=== PATIENT | male | born 1950 | race Caucasian/White ===

== ENCOUNTER 2023-02-23 22:40 | Inpatient (IN) | payer MEDICARE, OTHER, SELFPAY ==
--- NOTE | ~2023-02-23 | MR_ITS ---
MRI of the brain Clinical History: Altered mental status Technique: Axial and sagittal T1-weighted images were acquired. These were followed by axial T2-weigh penny, diffusion weighted, gradient, and FLAIR images. Following intravenous administration of 20 cc Mu ltiHance gadolinium, T1-weighted fat-sat imaging was performed in the axial, coronal, and sagittal pl anes. Findings: There is no acute infarct, intracranial hemorrhage, or mass lesion. Focal old right frontal lobe infarct noted. Moderate chronic microvascular ischemic changes are present in the periventricul ar white matter bilaterally. Ventricles and subarachnoid spaces are dilated. Orbits are unremarkable. Paranasal sinuses and mastoi d air cells are clear. Major intracranial flow voids are intact. Sagittal midline structures are grossly intact. No abnormal postcontrast enhancement identified. IMPRESSION: No acute abnormality seen. Old right frontal lobe infarct. Moderate chronic microvascular ischemic changes and moderate generalized atrophy. Reviewed, dictated and finalized at [facility]. IMPRESSION: No acute abnormality seen. Old right frontal lobe infarct. Moderate chronic microvascular ischemic changes and moderate generalized atroph y.
--- NOTE | ~2023-02-23 | XR_ITS ---
Portable chest x-ray Comparison: None Clinical History: Altered mental status Findings: Probable mild central pulmonary venous congestive change versus pulmonary hypertension. No consolidation or pleural effusion. No pneumothorax. Cardiomediastinal silhouette is otherwise unrem arkable. Bones and soft tissues are unremarkable. Impression: Central pulmonary venous congestive change versus possibly pulmonary hypertension. Reviewed, dictated and finalized at [facility]. Impression: Central pulmonary venous congestive change versus possibly pulmonary hypertensi on.
--- NOTE | ~2023-02-23 | CT_ITS ---
CT head without contrast Indication: Altered mental status Technique: Serial scans were obtained through the brain without the administration of contrast. Dose reduction technique was used on this scan by utilizing automated exposure control and iterative recon struction technique. The dose-length product (DLP) was 681.00 mGy-cm. Findings: There is no evidence of intracranial hemorrhage, mass lesion, or acute infarct. Old right f rontal lobe infarct noted. The ventricles and subarachnoid spaces are dilated, consistent with mild a trophy. Low attenuation regions are seen within the periventricular white matter bilaterally, likely representing changes from chronic microvascular ischemic disease. There is no evidence of edema, ma ss effect or midline shift. The visualized paranasal sinuses and mastoid air cells are clear. Impression: No intracranial hemorrhage, mass, or acute infarct. Chronic right frontal lobe infarct. Atrophy and chronic white matter changes, as above. Reviewed, dictated and finalized at [facility]. Impression: No intracranial hemorrhage, mass, or acute infarct. Chronic right frontal lobe infarct. Atrophy and chronic white matter changes, as above.
--- NOTE | ~2023-02-23 | XR_ITS ---
Portable chest x-ray Comparison: 02/23/2023 Clinical History: Chest pain, shortness of breath Findings: There is diffuse interstitial edema and mild central venous congestive change, worsened fr om prior exam. No definite pleural effusion or pneumothorax. Cardiomediastinal silhouette is stable. Bones and soft tissues are unremarkable. Impression: Significant worsening of diffuse interstitial pulmonary edema with central congestive change. Reviewed, dictated and finalized at [facility]. Impression: Significant worsening of diffuse interstitial pulmonary edema with central amanda estive change.
[2023-02-23 22:39] VITALS: PULSE 95; RESP 27; O2SAT 96
[2023-02-23 22:40] VITALS: TEMP 36.9
--- NOTE | 2023-02-23 22:44 | ED.GENADULT ---
HPI - General Adult General Chief complaint: Altered Mental Status Stated complaint: COMBATIVE History of Present Illness HPI narrative: this is a 72-year-old male with history of MS and daily prescribed opiate use presenting for altered mental status. The patient accidentally took double his opiate use today. His has been monitored throughout the day but then gave him Narcan. He then became very agitated and EMS was called. He was given Haldol had to be restrained. This time the patient cannot provide me any useful information but told EMS that his entire body hurts. Related Data Allergies Allergy/AdvReac Type Severity Reaction Status Date / Time Unable to Assess Allergy Unverified 02/23/23 22:49 [facility] Past Medical History Medical History (Updated 02/24/23 @ 04:58 by Karan Beyer MD) Multiple sclerosis Exam Narrative: APPEARANCE: Patient is being restrained by security and EMS, Head: atraumatic, pupils are bg. EYES: EOMI, NOSE: Atraumatic NECK: Trachea midline RESPIRATORY: No increased rate of breathing, clear to auscultation CARDIOVASCULAR: RRR, peripheral edema ABDOMINAL: Non-distended MUSCULOSKELETAl: No obvious deformities NEURO: Alert. Moving 4/4 extremities SKIN:: Warm, dry. Normal color PSYCHIATRIC: Normal affect Course Vital Signs Vital signs: Vital Signs Pulse Rate 95 02/23/23 22:39 Respiratory Rate 27 H 02/23/23 22:39 Pulse Oximetry 96 02/23/23 22:39 Temperature 98.4 F 02/23/23 22:40 Pulse Rate 58 L 02/24/23 04:06 Respiratory Rate 12 02/24/23 04:06 Blood Pressure 125/63 02/24/23 04:06 Pulse Oximetry 100 02/24/23 04:06 Medical Decision Making [facility] Narrative Medical decision making narrative: -Presentation: 72-year-old male with multiple sclerosis and daily opiate use presenting with agitation after being Narcan by his . On arrival patient was being restrained by multiple EMS. He was given multiple doses of Haldol and Ativan and eventually required ketamine to facilitate his workup. -DDX includes but is not limited to: Narcan induced opiate withdrawal, polysubstance use disorder, Seizure disorder -Co-morbidities complicating care: multiple sclerosis, daily narcotic use -Social determinants of health: lives with his -Hx from independent Sources: EMS -Discussion of Management/Consultants:Taras Reynolds - Hospitalist -Independent interpretation of studies: CBC within normal limits. Metabolic panel showed chronic kidney disease vs SUNNY. no baseline Cr in our system. troponins within normal limits. BNP wnl. Lipase is 1400. no tenderness on palpation of the abdomen. CT head : Advanced volume loss and microvascular changes are present. No intracranial hemorrhage. Region of encephalomalacia identified within the right parietal lobe probably to an old infarct. Chest x-ray showed no acute cardiopulmonary process. -Interventions: 5 mg Haldol x2, 2 mg Ativan x2, 4 mg IM ketamine, 3 L normal saline -Shared decision making / Disposition: Upon re-evaluation the patient is arousable but has garbled speech. The sedation he received could be contributing to his lethargy but it should not be affecting his speech to this degree. patient will be admitted to the hospital for further evaluation of his altered mental status. Consult placed to neurology. Vital Signs Vital Signs: Vital Signs Pulse Rate 95 02/23/23 22:39 Respiratory Rate 27 H 02/23/23 22:39 Pulse Oximetry 96 02/23/23 22:39 Temperature 98.4 F 02/23/23 22:40 Pulse Rate 58 L 02/24/23 04:06 Respiratory Rate 12 02/24/23 04:06 Blood Pressure 125/63 02/24/23 04:06 Pulse Oximetry 100 02/24/23 04:06 Lab Data 02/23/23 23:04 02/23/23 23:03 Labs: Lab Results 02/23/23 02/23/23 02/24/23 Range/Units 23:03 23:04 03:24 WBC 9.8 (4.5-10.0) K/mm3 RBC 4.08 L (4.6-6.20) M/mm3 Hgb 12.8
[2023-02-23] MEDS: HALOPERIDOL LACTATE 5 MG/ML VIAL IV PUSH (22:56)
[2023-02-23] MEDS: LORazepam INJ (*CRX) 2 MG/ML VIAL IV PUSH ×2 (23:03→23:18)
[2023-02-23 23:14] LABS: Basophils Percent Auto 0.2 % (0.2-1.2); Eosinophils Absolute Auto 0.2 K/mm3 (0-0.3); Eosinophils Percent Auto 2.2 % (0-4.4); Hematocrit 37.5 % (42.0-52.0); Hemoglobin 12.8 g/dL (14.0-18.0); Immature Granulocyte Absolute 0.04 K/mm3 (0.00-0.031); Immature Granulocyte Percent A 0.4 % (0-0.5); Lymphocytes Absolute Auto 4.25 K/mm3 (0.9-3.2); Lymphocytes Percent Auto 43.3 % (18.3-44.2); Mean Corpuscular HGB Conc 34.1 g/dl (32-36); Mean Corpuscular Hemoglobin 31.4 pg (26-34); Mean Corpuscular Volume 91.9 fl (80-100); Mean Platelet Volume 11.2 fl (7.4-10.4); Monocytes Absolute Auto 0.5 K/mm3 (0.1-0.6); Monocytes Percent Auto 4.9 % (2.6-8.5); Neutrophils Absolute Auto 4.8 K/mm3 (1.3-6.7); Platelet Count Result 150 k/mm3 (150-375); Red Blood Count 4.08 M/mm3 (4.6-6.20); Red Cell Distribution Width 14.1 % (11.5-14.5); White Blood Count 9.8 K/mm3 (4.5-10.0)
[2023-02-23 23:19] VITALS: BP 161/107
[2023-02-23 23:25] VITALS: PULSE 92; RESP 16; O2SAT 99
[2023-02-23 23:28] LABS: Partial Thromboplastin Time 31.5 SECONDS (22.3-36.8); Prothrombin Time 13.9 Seconds (11.1-14.7)
[2023-02-23 23:34] LABS: Alanine Aminotransferase 31 U/L (6-50); Albumin Level 4.5 g/dL (3.5-5.1); Alkaline Phosphatase 66 U/L (38-126); Anion Gap 14 mmol/L (8-16); Aspartate Amino Transferase 39 U/L (17-59); Bilirubin,Total 0.9 mg/dL (0.2-1.3); Blood Urea Nitrogen 40 mg/dL (9-20); Calcium 9.6 mg/dL (8.4-10.2); Carbon Dioxide 19 mmol/L (22-30); Chloride 105 mmol/L (98-107); Creatine Kinase 231 U/L (55-170); Estimated CRCL calculation 47 ml/min; Estimated Glomerular Filt Rate 40; Glucose 167 mg/dL (65-110); Lipase 1460 U/L (23-300); Magnesium 1.4 mg/dL (1.6-2.3); Potassium 4.9 mmol/L (3.4-5.0); Sodium 138 mmol/L (137-145)
[2023-02-23] MEDS: KETAMINE HCL (*CRX) 500 MG/10 ML VIAL 400 MG IM (23:36)
[2023-02-23 23:37] LABS: Lactic Acid Reflex 4.2 mmol/L (0.7-2.0)
[2023-02-23 23:45] LABS: Troponin I < 0.012 ng/mL (0.000-0.034)
[2023-02-23 23:48] VITALS: BP 156/69; PULSE 87; RESP 20; O2SAT 98
[2023-02-23 23:58] LABS: NT Pro B Type Natriuretic Pept 166 pg/mL (19.9-100)
[2023-02-24] VITALS (14 sets, daily range): BP systolic 100–150; BP diastolic 52–90; PULSE 55–80; RESP 12–18; TEMP 35.8–36.3; O2SAT 95–100; BMI 44.4
[2023-02-24] MEDS: SODIUM CHLORIDE 0.9% IV 2,000 ML 999 ML IV CONT (00:41)
[2023-02-24 02:09] LABS: Reflex Lactic Acid Yes or No Add Lactic
--- NOTE | 2023-02-24 02:35 | ECG_ITS ---
Measurements Intervals [place] Rate: 68 P: 41 [place]: 213 QRS: -9 QRSD: 185 T: 144 QT: 443 QTc: 472 Interpretive Statements SINUS RHYTHM WITH FIRST DEGREE AV BLOCK LEFT BUNDLE BRANCH BLOCK ABNORMAL ECG NO PREVIOUS ECG AVAILABLE FOR COMPARISON Electronically Signed On 02-24-2023 7:38:43 CDT by Jaiden Funes D.O.
--- NOTE | 2023-02-24 03:41 | PC.NURSE ---
This RN assumed care of patient.
[2023-02-24 04:03] LABS: Lactic Acid 0.8 mmol/L (0.7-2.0)
--- NOTE | 2023-02-24 04:05 | PC.NURSE ---
Pt is asleep. Bilateral soft ankle and wrist restraints removed at this time.
[2023-02-24 04:16] LABS: Troponin I 0.013 ng/mL (0.000-0.034)
[2023-02-24] MEDS: SODIUM CHLORIDE 0.9% IV 1,000 ML 999 ML IV CONT (04:59)
[2023-02-24 05:20] LABS: Ammonia < 9 umol/L (9-30)
[2023-02-24 05:21] LABS: Lactic Acid Reflex 0.6 mmol/L (0.7-2.0)
[2023-02-24 05:26] LABS: Amphetamine Screen Urine Negative (Negative); Barbiturate Screen Urine Negative (Negative); Benzodiazepines Screen Urine Negative (Negative); Cannabinoid Screen Urine Negative (Negative); Cocaine Screen Urine Negative (Negative); Methadone Screen Urine Negative (Negative); Opiate Screen Urine Positive (Negative); Phencyclidine Screen Urine Negative (Negative)
[2023-02-24 05:47] LABS: Influenza A QL RT-PCR Negative (Negative); Influenza B QL RT-PCR Negative (Negative); RSV RNA, RT-PCR Negative (Negative); SARS-CoV-2 RNA PCR Negative (Negative)
[2023-02-24 05:52] LABS: Alveolar/Arterial O2 Gradient 23.8 mmHg; Base Excess ABG -7.7 mEq/l (+/-2.0); Fractional Inspired Oxygen 21 %; HCO3 ABG 19.2 mEq/l (22.0-26.0); Oxygen Content ABG 15.3 %vol (16.0-22.0); Oxygen Saturation ABG 92.1 % (95.0-100.0); Oxyhemoglobin 91.8 % THb (90.0-100.0); PCO2 ABG 44.8 mmHg (35.0-45.0); PO2 ABG 72.3 mmHg (80.0-100.0); PO2 FiO2 Ratio Arterial Blood 3.44 %; Total Hemoglobin 11.8 g/dL (12.0-18.0)
[2023-02-24 05:54] LABS: Device ROOM AIR; Modified Allen's Test Pass; Site Drawn LEFT RADIAL; pH ABG 7.251 (7.350-7.450)
[2023-02-24 06:00] LABS: Appearance Urine Clear (Clear); Bacteria Urine None Seen /hpf; Bilirubin Urine Negative (Negative); Blood Urine Negative (Negative); Color Urine Yellow (Yellow); Glucose Urine UA Negative (Negative); Hyaline Casts Urine Present /lpf; Ketones Urine Trace mg/dL (Negative); Leukocyte Esterase Ur Negative LEU/UL (Negative); Nitrate Urine Negative (Negative); Protein Urine Trace mg/dL (Negative); RBC Urine 0-2 /hpf (0-2); Specific Grav Ur 1.016 (1.001-1.035); Squamous Epithelial Cell Urine None seen /hpf (Few); Urobilinogen Urine 0.2 mg/dL (<2.0); WBC Urine 0-5 /hpf
[2023-02-24 06:03] LABS: Add Urine Microscopic? YES
[2023-02-24] MEDS: LACTATED RINGERS 1,000 ML 125 ML IV CONT ×2 (06:05→16:34)
--- NOTE | 2023-02-24 06:31 | PC.NURSE ---
This RN attempted to call report. Rn taking pt was busy in a patient room and would call me back.
[2023-02-24 07:39] LABS: Glucose Point of Care 124 mg/dl (65-105)
[2023-02-24] MEDS: PANTOPRAZOLE SODIUM IV 40 MG VIAL IV PUSH (08:12)
[2023-02-24 09:28] LABS: Basophils Percent Auto 0.3 % (0.2-1.2); Eosinophils Absolute Auto 0.1 K/mm3 (0-0.3); Eosinophils Percent Auto 1.4 % (0-4.4); Hematocrit 37.1 % (42.0-52.0); Hemoglobin 12.5 g/dL (14.0-18.0); Immature Granulocyte Absolute 0.02 K/mm3 (0.00-0.031); Immature Granulocyte Percent A 0.2 % (0-0.5); Immature Platelet Fraction Pct 6.3 % (0.9-11.2); Lymphocytes Absolute Auto 3.73 K/mm3 (0.9-3.2); Lymphocytes Percent Auto 37.4 % (18.3-44.2); Mean Corpuscular HGB Conc 33.7 g/dl (32-36); Mean Corpuscular Volume 94.9 fl (80-100); Mean Platelet Volume 12.1 fl (7.4-10.4); Monocytes Absolute Auto 0.5 K/mm3 (0.1-0.6); Monocytes Percent Auto 5.2 % (2.6-8.5); Neutrophils Absolute Auto 5.5 K/mm3 (1.3-6.7); Neutrophils Percent Auto 55.5 % (45.5-73.1); Platelet Count Result 133 k/mm3 (150-375); Red Blood Count 3.91 M/mm3 (4.6-6.20); Red Cell Distribution Width 14.3 % (11.5-14.5)
[2023-02-24 09:34] LABS: Magnesium 1.4 mg/dL (1.6-2.3)
[2023-02-24 09:41] LABS: Alanine Aminotransferase 26 U/L (6-50); Albumin Level 3.9 g/dL (3.5-5.1); Alkaline Phosphatase 53 U/L (38-126); Anion Gap 6 mmol/L (8-16); Aspartate Amino Transferase 36 U/L (17-59); Bilirubin,Total 0.9 mg/dL (0.2-1.3); Blood Urea Nitrogen 33 mg/dL (9-20); Calcium 8.1 mg/dL (8.4-10.2); Carbon Dioxide 20 mmol/L (22-30); Chloride 111 mmol/L (98-107); Estimated CRCL calculation 71 ml/min; Estimated Glomerular Filt Rate > 60; Glucose 126 mg/dL (65-110); Lipase 243 U/L (23-300); Potassium 5.9 mmol/L (3.4-5.0); Sodium 137 mmol/L (137-145)
--- NOTE | 2023-02-24 09:45 | WPDNEURCNPN ---
Assessment and Plan Assessment and plan (1) Altered mental status: Code(s): R41.82 - Altered mental status, unspecified Status: Acute (2) Agitation: Code(s): R45.1 - Restlessness and agitation Status: Acute (3) Narcotic withdrawal: Code(s): F11.93 - Opioid use, unspecified with withdrawal Status: Acute (4) Accidental overdose: Code(s): T50.901A - Poisoning by unspecified drugs, medicaments and biological substances, accidental (unintentional), initial encounter Status: Acute Assessment and Plan: Mr. Kent is a 72 year ol male with a reported history of MS that presented with altered mental status after accidental overdose of opoids. Course has also been complicated by narcotic withdrawal from Narcan as well as sedating drugs he received for agitation in the emergency room. Patient is not at baseline mental status, but he is able to follow directions with prompting. MRI brain has already been done which was negative for acute process. - EEG is not needed at this point, if mental status does not improve over the next day, can re-consider at that time. Consult date: 02/24/23 Reason for consult: Altered mental status HPI: Ryan Kent is a 72 year old male with a history of multiple sclerosis presenting with AMS. Patient reportedly took double his opiod dose yesterday resulting in somnolence. gave him Narcan which resulted in him being agitated. He received several doses of Haldol, Ativan, and Ketamine. In the ED his CT head showed advanced volume loss and R parietal lobe encephalomalacia. Patient became more alert in the ED, but continued to have garbled speech, which was why Neurology was consulted. reports that this is not the first time this has happened. In the past he was taken to [facility] after he accidentally took 2 night's worth of his medications. feels that he is still not at his baseline. Review of Systems Review of Systems: ROS unobtainable: Yes unobtainable due to mental status PMFSH Past Medical History Medical History Multiple sclerosis Family History Family History Mother Heart disease Diabetes mellitus Unknown No problems noted. Father Heart disease Diabetes mellitus Sibling Leukemia Social History Social History Smoking status: Former smoker Alcohol intake: current Drinks per week: 1 Substance use: current Substance use type: painkillers Last use: 02/23/23 Lack of Transportation: No Lack of Food: Never True Current Housing: I Have Housing Concerned About Future Housing: No Difficulty Paying Gas/Electric Bills: No Difficulty Paying for Meds: No Currently Unemployed: No Education: Don't Know Difficulty w/ Childcare or Family Care: Decline to Answer Spiritual care concerns: No Meds Home Medications and Allergies Home Medications Medication Instructions Recorded Confirmed Type Adult Low Dose Aspirin 81 mg BYMOUTH DAILY 02/24/23 02/24/23 History PreserVision AREDS 2 tablet DAILY 02/24/23 02/24/23 History atorvastatin 80 mg tablet 80 mg PO HS 02/24/23 02/24/23 History baclofen 20 mg BYMOUTH BID 02/24/23 02/24/23 History cholecalciferol (vitamin D3) 50 mcg BYMOUTH DAILY 02/24/23 02/24/23 History docusate sodium 100 mg BYMOUTH DAILY 02/24/23 02/24/23 History ferrous sulfate 324 mg BYMOUTH DAILY 02/24/23 02/24/23 History hydroxyzine HCl 10 mg BYMOUTH HS 02/24/23 02/24/23 History isosorbide mononitrate 30 mg BYMOUTH DAILY 02/24/23 02/24/23 History levothyroxine 75 mcg BYMOUTH DAILY 02/24/23 02/24/23 History losartan 100 mg BYMOUTH DAILY 02/24/23 02/24/23 History meclizine 25 mg BYMOUTH TID PRN Nausea 02/24/23 02/24/23 History metoprolol tartrate 50 mg BYMOUTH BID 02/24/23 02/24/23 History morphine 60 mg Q12H 02/24/23 02/24/23
--- NOTE | 2023-02-24 09:54 | ADMGEN ---
This patient, Ryan Kent, was admitted to [facility] Surg Room 306-01. Patient/family oriented to hospital policies and general routines including ID bracelet, bed and alarms, visiting hours, pain management, procedures, bathroom and other care routines, personal items, smoking policy, room service/diet, and visiting hours. Information on how to activate the Rapid Response Team has been discussed. Patient/Family are encouraged to report perceived risks to care and to ask questions if they do not understand what they are told or what they should do. Night nurse got report from er nurse.
[2023-02-24 11:46] LABS: Glucose Point of Care 134 mg/dl (65-105)
--- NOTE | 2023-02-24 14:36 | ECG_ITS ---
Measurements Intervals [place] Rate: 72 P: -3 [place]: 176 QRS: -35 QRSD: 185 T: 131 QT: 442 QTc: 484 Interpretive Statements SINUS RHYTHM ATRIAL PREMATURE COMPLEX LEFT AXIS DEVIATION LEFT BUNDLE BRANCH BLOCK BASELINE ARTIFACT- II ABNORMAL ECG COMPARED TO ECG 02/24/2023 02:35:49 NO SIGNIFICANT CHANGES Electronically Signed On 02-24-2023 15:55:15 CDT by Jaiden Funes D.O.
--- NOTE | 2023-02-24 14:42 | PM.IMHP ---
H&P: HPI History of Present Illness Date/Time: 02/24/23 14:42 Chief Complaint: altered mental status Narrative: This is a 72-year-old male with a past medical history of multiple sclerosis, hypothyroidism, hypertension, anemia, chronic narcotic use, diabetes, obstructive sleep apnea and macular degeneration that presented to the ED on 02/23/2023 due to altered mental status. Most of the history is taken from patient's who is at bedside. Patient's states that she typically handles his medications but over the past week patient was wanting to be more independent in handle his own medications. When they woke yesterday morning patient's asked him if he had taken his medication and at that time he could not remember. Patient had in fact taken his morning dose of medication from a the day prior and then took yesterday's medication a couple hours later. Per patient's he had 2 doses of all of his morning meds within approximately 2-3 hours of each other. It is to be presumed that patient did not take his morning medications the day before this. Patient's states that he frequently gets confused needs redirecting. She understands that she will need to take over his medications once again. Patient's stated that he takes 60 mg of morphine once in the morning and once at night. Patient ingested 120 mg of morphine yesterday morning. About 30 minutes after he had taken his 2nd round of medications he became very loud, aggressive, and restless. Patient's then decided to Narcan him at this time. Patient made statements such as he was going to and that he needed immediate medical attention. Patient's then called EMS. Patient did have an increased respiratory rate with blood pressure, pulse ox and heart rate within normal limits. Patient was very combative in the ED and needing restraints. Patient had been given multiple doses of Haldol, Ativan and eventually requiring ketamine to facilitate his workup. There was concern for Narcan induced opiate withdrawal, polysubstance use disorder and seizure disorder. Patient's denies alcohol abuse and drug use. Patient takes narcotics due to multiple sclerosis. CBC was within normal limits. Metabolic panel revealing mildly elevated creatinine which is since returned to baseline. BNP and troponin within normal limits patient did have an elevated lipase at 1400. CT head revealing no intracranial hemorrhage, mass or acute infarct, chronic right frontal lobe infarct and atrophy and chronic white matter changes present. Chest x-ray with central pulmonary venous congested changes versus possibly pulmonary hypertension. Blood culture drawn. Patient admitted for further workup and observation. Review of Systems Review of Systems: ROS unobtainable: Yes unobtainable due to medical condition [facility] Past Medical History Medical History (Updated 02/24/23 @ 15:21 by Imelda Rivera PA-C) Anemia Diabetes Hyperlipidemia Hypertension Hypothyroidism Macular degeneration disease Multiple sclerosis Obstructive sleep apnea Surgical History Surgical History (Updated 02/24/23 @ 15:21 by Imelda Rivera PA-C) H/O heart artery stent H/O hernia repair Hx laparoscopic cholecystectomy Hx of tonsillectomy Family History Family History Mother Heart disease Diabetes mellitus Unknown No problems noted. Father Heart disease Diabetes mellitus Sibling Leukemia Social History Social History Smoking status: Former smoker Alcohol intake: current Drinks per week: 1 Substance use: current Substance use type: painkillers Last use: 02/23/23 Lack of Transportation: No Lack of Food: Never True Current Housing: I Have Housing Concerned About Future Housing: No Difficulty Paying Gas/Electric Bills: No Difficulty Paying for Meds: No
[2023-02-24] MEDS: MAGNESIUM SULFATE 3GM/D5W100ML 3 GM/100 ML BAG IVPB (15:24)
[2023-02-24 15:35] LABS: Vitamin D 25 Hydroxy 86.2 ng/mL
[2023-02-24 16:21] LABS: Glucose Point of Care 132 mg/dl (65-105)
[2023-02-24 18:58] LABS: Anion Gap 8 mmol/L (8-16); Blood Urea Nitrogen 24 mg/dL (9-20); Calcium 8.4 mg/dL (8.4-10.2); Carbon Dioxide 20 mmol/L (22-30); Chloride 109 mmol/L (98-107); Estimated CRCL calculation 81 ml/min; Estimated Glomerular Filt Rate > 60; Glucose 148 mg/dL (65-110); Sodium 137 mmol/L (137-145)
[2023-02-24 21:10] LABS: Glucose Point of Care 145 mg/dl (65-105)
[2023-02-24] MEDS: METOPROLOL TARTRATE 50 MG TAB PO (21:34)
[2023-02-25] VITALS (11 sets, daily range): BP systolic 136–169; BP diastolic 48–68; PULSE 51–80; RESP 18–26; TEMP 35.7–36.3; O2SAT 92–97
[2023-02-25 05:13] LABS: Alveolar/Arterial O2 Gradient 51.6 mmHg; Base Excess ABG -4.5 mEq/l (+/-2.0); Device ROOM AIR; Fractional Inspired Oxygen 21 %; HCO3 ABG 19.8 mEq/l (22.0-26.0); Modified Allen's Test Pass; Oxygen Content ABG 15.6 %vol (16.0-22.0); Oxygen Saturation ABG 89.7 % (95.0-100.0); Oxyhemoglobin 88.8 % THb (90.0-100.0); PCO2 ABG 34.1 mmHg (35.0-45.0); PO2 ABG 57.3 mmHg (80.0-100.0); PO2 FiO2 Ratio Arterial Blood 2.73 %; Site Drawn RIGHT RADIAL; Total Hemoglobin 12.5 g/dL (12.0-18.0); pH ABG 7.382 (7.350-7.450)
[2023-02-25] MEDS: LEVOTHYROXINE SODIUM 75 MCG TABLET PO (05:49)
[2023-02-25] MEDS: LACTATED RINGERS 1,000 ML 125 ML IV CONT (05:51)
[2023-02-25 06:10] LABS: Basophils Percent Auto 0.2 % (0.2-1.2); Eosinophils Absolute Auto 0.1 K/mm3 (0-0.3); Eosinophils Percent Auto 0.5 % (0-4.4); Hematocrit 34.6 % (42.0-52.0); Hemoglobin 11.8 g/dL (14.0-18.0); Immature Granulocyte Absolute 0.06 K/mm3 (0.00-0.031); Immature Granulocyte Percent A 0.6 % (0-0.5); Lymphocytes Absolute Auto 4.13 K/mm3 (0.9-3.2); Lymphocytes Percent Auto 39.4 % (18.3-44.2); Mean Corpuscular HGB Conc 34.1 g/dl (32-36); Mean Corpuscular Hemoglobin 31.3 pg (26-34); Mean Corpuscular Volume 91.8 fl (80-100); Mean Platelet Volume 10.9 fl (7.4-10.4); Monocytes Absolute Auto 0.6 K/mm3 (0.1-0.6); Monocytes Percent Auto 5.3 % (2.6-8.5); Neutrophils Absolute Auto 5.7 K/mm3 (1.3-6.7); Platelet Count Result 156 k/mm3 (150-375); Red Blood Count 3.77 M/mm3 (4.6-6.20); Red Cell Distribution Width 14.3 % (11.5-14.5); White Blood Count 10.5 K/mm3 (4.5-10.0)
[2023-02-25 06:27] LABS: Alanine Aminotransferase 26 U/L (6-50); Albumin Level 3.9 g/dL (3.5-5.1); Alkaline Phosphatase 59 U/L (38-126); Anion Gap 9 mmol/L (8-16); Aspartate Amino Transferase 40 U/L (17-59); Bilirubin,Total 0.8 mg/dL (0.2-1.3); Blood Urea Nitrogen 16 mg/dL (9-20); Calcium 8.5 mg/dL (8.4-10.2); Carbon Dioxide 23 mmol/L (22-30); Chloride 107 mmol/L (98-107); Estimated CRCL calculation 91 ml/min; Estimated Glomerular Filt Rate > 60; Glucose 148 mg/dL (65-110); Magnesium 1.5 mg/dL (1.6-2.3); Potassium 4.8 mmol/L (3.4-5.0); Sodium 139 mmol/L (137-145)
[2023-02-25 07:44] LABS: Glucose Point of Care 137 mg/dl (65-105)
[2023-02-25] MEDS: PANTOPRAZOLE SODIUM IV 40 MG VIAL IV PUSH (08:11)
[2023-02-25] MEDS: METOPROLOL TARTRATE 50 MG TAB PO (08:11)
--- NOTE | 2023-02-25 10:08 | ECG_ITS ---
Measurements Intervals [place] Rate: 44 P: -11 [place]: 184 QRS: -24 QRSD: 182 T: 129 QT: 490 QTc: 421 Interpretive Statements SINUS BRADYCARDIA LEFT BUNDLE BRANCH BLOCK BASELINE WANDER- I, II, V4 ABNORMAL ECG COMPARED TO ECG 02/24/2023 15:51:42 SINUS BRADYCARDIA NOW PRESENT Electronically Signed On 02-25-2023 11:27:18 CDT by Jaiden Funes D.O.
[2023-02-25 10:17] LABS: Glucose Point of Care 139 mg/dl (65-105)
[2023-02-25 10:55] LABS: Troponin I 0.016 ng/mL (0.000-0.034)
[2023-02-25 11:49] LABS: Glucose Point of Care 168 mg/dl (65-105)
--- NOTE | 2023-02-25 12:15 | P.PNIM_ITS ---
Progress Note: A&P Assessment and Plan (1) Altered mental status: Code(s): R41.82 - Altered mental status, unspecified Status: Acute Assessment and Plan: Patient presented with altered mental status after ingesting 2 doses of his morning medications including morphine. Patient was very very agitated and by the time he arrived to the ED he received Haldol, Ativan and ketamine due to being combative and aggressive. Patient very lethargic when being evaluated. * Tox screen revealed positive for opiates. denies drug use and alcohol abuse. * Head CT negative for acute intracranial hemorrhage, mass or acute infarct * Brain MRI no acute abnormality seen, old right frontal lobe infarct * CBC within normal limits * Patient was found to be in metabolic acidosis. Will plan for repeat blood gas in the morning. * Checking vitamin levels due to patient's saying that he takes a lot of vitamins in the morning * Ammonia less than 9, LFTs normal * Upon admission creatinine 1.7 but has returned To normal. * Lipase elevated to 1400 on admission but repeat down to 243. * Neurology was consulted but do not believe the patient requires EEG at this time. * Continue to monitor mental status. (2) Accidental overdose: Code(s): T50.901A - Poisoning by unspecified drugs, medicaments and biological substances, accidental (unintentional), initial encounter Status: Acute Assessment and Plan: Patient had taken 120 mg of morphine. * Patient's tox screen positive for opiates. * His gave him Narcan him at home. (3) Pulmonary edema: Code(s): J81.1 - Chronic pulmonary edema Status: Acute Assessment and Plan: 02/25/23 during evaluation of the patient he stated that he was having chest pain and difficulty breathing. * Troponin within normal limits and EKG with no significant changes other than sinus bradycardia. * Chest x-ray showing worsening interstitial pulmonary edema. * IV fluids discontinued * Start patient on 40 mg IV Lasix b.i.d. (4) Hyperkalemia: Code(s): E87.5 - Hyperkalemia Status: Acute Assessment and Plan: potassium 5.9 on 02/24/2023. Patient likely hyperkalemic due to metabolic acidosis. * patient received IV fluids * Will give 1 time dose of albuterol * 02/25 fluids discontinued resolved (5) Multiple sclerosis: Code(s): G35 - Multiple sclerosis Status: Chronic Assessment and Plan: Continue home medications (6) Hypertension: Code(s): I10 - Essential (primary) hypertension Status: Chronic Assessment and Plan: Hold home medications for now. (7) Hyperlipidemia: Code(s): E78.5 - Hyperlipidemia, unspecified Status: Chronic Assessment and Plan: Hold medication (8) Hypothyroidism: Code(s): E03.9 - Hypothyroidism, unspecified Status: Chronic Assessment and Plan: continue levothyroxine. Subjective Date/time seen: 02/25/23 12:15 Interval history: Patient appearing much better today. Patient is able to answer my questions and responds appropriately. Patient states that he was having some chest pain and difficulty breathing. Patient's respirations did appear labored. Patient denies nausea, vomiting or radiation of pain down his arms and neck. Review of Systems Review of Systems: All systems reviewed & are unremarkable except as noted in HPI and below Exam
--- NOTE | 2023-02-25 12:15 | PM.IMPN ---
Progress Note: A&P Assessment and Plan (1) Altered mental status: Code(s): R41.82 - Altered mental status, unspecified Status: Acute Assessment and Plan: Patient presented with altered mental status after ingesting 2 doses of his morning medications including morphine. Patient was very very agitated and by the time he arrived to the ED he received Haldol, Ativan and ketamine due to being combative and aggressive. Patient very lethargic when being evaluated. Tox screen revealed positive for opiates. denies drug use and alcohol abuse. Head CT negative for acute intracranial hemorrhage, mass or acute infarct Brain MRI no acute abnormality seen, old right frontal lobe infarct CBC within normal limits Patient was found to be in metabolic acidosis. Will plan for repeat blood gas in the morning. Checking vitamin levels due to patient's saying that he takes a lot of vitamins in the morning Ammonia less than 9, LFTs normal Upon admission creatinine 1.7 but has returned To normal. Lipase elevated to 1400 on admission but repeat down to 243. Neurology was consulted but do not believe the patient requires EEG at this time. Continue to monitor mental status. (2) Accidental overdose: Code(s): T50.901A - Poisoning by unspecified drugs, medicaments and biological substances, accidental (unintentional), initial encounter Status: Acute Assessment and Plan: Patient had taken 120 mg of morphine. Patient's tox screen positive for opiates. His gave him Narcan him at home. (3) Pulmonary edema: Code(s): J81.1 - Chronic pulmonary edema Status: Acute Assessment and Plan: 02/25/23 during evaluation of the patient he stated that he was having chest pain and difficulty breathing. Troponin within normal limits and EKG with no significant changes other than sinus bradycardia. Chest x-ray showing worsening interstitial pulmonary edema. IV fluids discontinued Start patient on 40 mg IV Lasix b.i.d. (4) Hyperkalemia: Code(s): E87.5 - Hyperkalemia Status: Acute Assessment and Plan: potassium 5.9 on 02/24/2023. Patient likely hyperkalemic due to metabolic acidosis. patient received IV fluids Will give 1 time dose of albuterol 02/25 fluids discontinued resolved (5) Multiple sclerosis: Code(s): G35 - Multiple sclerosis Status: Chronic Assessment and Plan: Continue home medications (6) Hypertension: Code(s): I10 - Essential (primary) hypertension Status: Chronic Assessment and Plan: Hold home medications for now. (7) Hyperlipidemia: Code(s): E78.5 - Hyperlipidemia, unspecified Status: Chronic Assessment and Plan: Hold medication (8) Hypothyroidism: Code(s): E03.9 - Hypothyroidism, unspecified Status: Chronic Assessment and Plan: continue levothyroxine. Subjective Date/time seen: 02/25/23 12:15 Interval history: Patient appearing much better today. Patient is able to answer my questions and responds appropriately. Patient states that he was having some chest pain and difficulty breathing. Patient's respirations did appear labored. Patient denies nausea, vomiting or radiation of pain down his arms and neck. Review of Systems Review of Systems: All systems reviewed & are unremarkable except as noted in HPI and below Exam Narrative: GENERAL: Comfortable, no acute distress, neck HENMT: white thick secretions in patient's mouth EYES: EOM intact b/l NECK: no lymphadenopathy RESPIRATORY: clear to auscultation, tachypneic, paroxysmal respirations CARDIO: RRR GI: soft, nontender, bowel sounds present SKIN: no rashes EXTREMITIES: no edema, redness or tenderness Objective Data Vital Signs Vital Signs: Vital Signs - 24 hr 02/24/23 14:00 02/24/23 16:00 02/24/23 21:02 Temperature 96.5 F L 97.4 F L P
[2023-02-25] MEDS: MAGNESIUM SULFATE 3GM/D5W100ML 3 GM/100 ML BAG IVPB (13:19)
--- NOTE | 2023-02-25 13:28 | WPDNEUROPN ---
Progress Note: A&P Assessment and Plan (1) Accidental overdose: Code(s): T50.901A - Poisoning by unspecified drugs, medicaments and biological substances, accidental (unintentional), initial encounter Status: Acute (2) Narcotic withdrawal: Code(s): F11.93 - Opioid use, unspecified with withdrawal Status: Acute (3) Altered mental status: Code(s): R41.82 - Altered mental status, unspecified Status: Acute (4) Agitation: Code(s): R45.1 - Restlessness and agitation Status: Acute Plan Mr. Kent is a 72 year ol male with a reported history of MS that presented with altered mental status after accidental overdose of opioids. Course has also been complicated by narcotic withdrawal from Narcan as well as sedating drugs he received for agitation in the emergency room. Mental status appears to be improving. MRI brain was negative for acute process. - No further Neuro work-up needed. Subjective Date/time seen: 02/25/23 13:28 Interval history: Ryan Kent is a 72 year old male with a history of multiple sclerosis presenting with AMS. Patient reportedly took double his opiod dose yesterday resulting in somnolence. gave him Narcan which resulted in him being agitated. He received several doses of Haldol, Ativan, and Ketamine. In the ED his CT head showed advanced volume loss and R parietal lobe encephalomalacia. Patient became more alert in the ED, but continued to have garbled speech, which was why Neurology was consulted. reports that this is not the first time this has happened. In the past he was taken to [facility] after he accidentally took 2 night's worth of his medications. Today mental status is better. MRI brain is normal. reports that patient has been more short of breath and diaphoretic. Review of Systems Constitutional: Constitutional: Reports no additional constitutional complaints Eyes: Eyes: Reports no additional eye complaints ENT: Reports system reviewed and no additional complaints, except as documented Cardiovascular: Cardiovascular: Reports chest pain Respiratory: Respiratory: Reports dyspnea Gastrointestinal: Gastrointestinal: Reports no additional gastrointestinal complaints Genitourinary: Genitourinary: Reports no additional male genitourinary complaints Musculoskeletal: Musculoskeletal: Reports myalgias Integumentary/Breasts: Skin/Breast: Reports system reviewed and no additional complaints, except as docu Neurologic: Reports as per HPI Psychiatric: Psychiatric: Reports behavioral changes and Reports confusion Exam Const: General: comfortable and no acute distress HENMT: Mouth: Yes moist mucous membranes Eyes: Pupils: Equal, round and reactive pupils present EOM: EOMs intact bilaterally Resp: Auscultation: clear to auscultation bilaterally Other: increased work of breathing Cardio: Rate: regular rate GI: GI Palp: Yes Soft to palpation Auscultation: normal bowel sounds Skin: General skin exam: normal color Neuro: Other: Alert and oriented to self, place ( hospital ), and year. Thought it was December. PERRL, PERRL, Face is symmetric, moves upper extremities against gravity and resistance symmetrically, moving lower extremities against gravity symmetrically, able to follow commands. Speech is more clear today. Comprehension is intact. Extrem: General: normal to inspection Psych: Mental Status: mental status grossly normal Objective Data Vital Signs Vital Signs: Vital Signs - 24 hr 02/24/23 14:00 02/24/23 16:00 02/24/23 21:02 Temperature 35.8 C L 36.3 C L Pulse Rate 58 L 70 80 Respiratory Rate 18 16 Blood Pressure 150/60 H 149/72 H Pulse Oximetry 95 95 Oxygen Delivery 02/24/23 21:34 02/24/23 20:00 02/25/23 00:00 Temperature Pulse Rate 80 76 67 Respiratory Rate Blood Pressure Pulse Oximetry Oxygen Delivery 02/25/23 04:00 02/25/23 05:43 02/25/23 08:11
--- NOTE | 2023-02-25 13:30 | PC.NURSE ---
Pt's stated that [facility] and he was really angry about it. She also stated that pt has no short term memory and doesn't remember things 10 minutes later.
--- NOTE | 2023-02-25 13:31 | PC.NURSE ---
Pt's asked about pt's home meds specifically when pt would start taking the morphine again. She stated that pt is not like other people with MS because he has a lot of uncontrolled pain. Pt was lying quietly and calmly in the bed, not grimacing or moaning, etc.
--- NOTE | 2023-02-25 13:34 | PC.NURSE ---
Upon trying to administer IVPB to pt, I discovered that pt had pulled out his IV again. I had been informed that pt is a hard stick. The only vascular nurse is not working today. Attempts to find someone to place an IV will be made. Pt's stated that he always pulls everything out/off which is consistent with pt's behavior having pulled out 4 IVs and repeatedly removing the tele leads.
[2023-02-25 16:11] LABS: Glucose Point of Care 173 mg/dl (65-105)
[2023-02-25] MEDS: FUROSEMIDE INJ 40 MG/4 ML VIAL IV PUSH (16:16)
[2023-02-25] MEDS: DOCUSATE SODIUM 100 MG CAPSULE PO (20:47)
[2023-02-25] MEDS: TERAZOSIN HCL 5 MG CAPSULE PO (20:47)
[2023-02-25] MEDS: SENNOSIDES 8.6 MG TABLET PO (20:47)
[2023-02-25] MEDS: MORPHINE SULFATE (*CRX) 30 MG TABCR PO (20:47)
[2023-02-25] MEDS: NORTRIPTYLINE HCL 25 MG CAPSULE PO (20:47)
[2023-02-25 21:35] LABS: Glucose Point of Care 203 mg/dl (65-105)
[2023-02-26] VITALS (10 sets, daily range): BP systolic 138–150; BP diastolic 48–65; PULSE 61–92; RESP 16–18; TEMP 35.8–36.3; O2SAT 92–97
[2023-02-26] MEDS: WATER FOR IRRIGATION, STERILE 1,000 ML BOTTLE 1000 ML (01:48)
[2023-02-26] MEDS: BISACODYL 10 MG SUPPOSITORY RECTAL (01:58)
[2023-02-26] MEDS: LEVOTHYROXINE SODIUM 75 MCG TABLET PO (05:57)
[2023-02-26 07:24] LABS: Basophils Percent Auto 0.4 % (0.2-1.2); Eosinophils Percent Auto 0.2 % (0-4.4); Hematocrit 32.6 % (42.0-52.0); Hemoglobin 11.1 g/dL (14.0-18.0); Immature Granulocyte Absolute 0.06 K/mm3 (0.00-0.031); Immature Granulocyte Percent A 0.5 % (0-0.5); Lymphocytes Absolute Auto 4.63 K/mm3 (0.9-3.2); Lymphocytes Percent Auto 40.7 % (18.3-44.2); Mean Corpuscular Hemoglobin 31.3 pg (26-34); Mean Corpuscular Volume 91.8 fl (80-100); Mean Platelet Volume 11.3 fl (7.4-10.4); Monocytes Absolute Auto 0.7 K/mm3 (0.1-0.6); Monocytes Percent Auto 6.5 % (2.6-8.5); Neutrophils Absolute Auto 5.9 K/mm3 (1.3-6.7); Neutrophils Percent Auto 51.7 % (45.5-73.1); Platelet Count Result 154 k/mm3 (150-375); Red Blood Count 3.55 M/mm3 (4.6-6.20); Red Cell Distribution Width 14.3 % (11.5-14.5); White Blood Count 11.4 K/mm3 (4.5-10.0)
[2023-02-26 07:34] LABS: Alanine Aminotransferase 24 U/L (6-50); Albumin Level 3.8 g/dL (3.5-5.1); Alkaline Phosphatase 61 U/L (38-126); Anion Gap 7 mmol/L (8-16); Aspartate Amino Transferase 34 U/L (17-59); Bilirubin,Total 0.8 mg/dL (0.2-1.3); Blood Urea Nitrogen 17 mg/dL (9-20); Calcium 8.2 mg/dL (8.4-10.2); Carbon Dioxide 24 mmol/L (22-30); Chloride 108 mmol/L (98-107); Estimated CRCL calculation 91 ml/min; Estimated Glomerular Filt Rate > 60; Glucose 170 mg/dL (65-110); Magnesium 1.7 mg/dL (1.6-2.3); Potassium 3.9 mmol/L (3.4-5.0); Sodium 139 mmol/L (137-145)
[2023-02-26 07:58] LABS: Glucose Point of Care 167 mg/dl (65-105)
[2023-02-26] MEDS: MAGNESIUM SULF 2 GM/WATER 50ML 2 GM/50 ML BAG IVPB (08:12)
[2023-02-26] MEDS: PANTOPRAZOLE SODIUM IV 40 MG VIAL IV PUSH (08:15)
[2023-02-26] MEDS: DOCUSATE SODIUM 100 MG CAPSULE PO (08:15)
[2023-02-26] MEDS: TERAZOSIN HCL 5 MG CAPSULE PO ×2 (08:15→21:41)
[2023-02-26] MEDS: MORPHINE SULFATE (*CRX) 30 MG TABCR PO ×2 (08:15→21:43)
[2023-02-26] MEDS: ISOSORBIDE MONONITRATE 30 MG TAB.ER.24H PO (08:15)
[2023-02-26] MEDS: ASPIRIN 81 MG CHEWABLE TABLET PO (08:15)
[2023-02-26] MEDS: FUROSEMIDE INJ 40 MG/4 ML VIAL IV PUSH ×2 (08:15→16:53)
[2023-02-26] MEDS: LOSARTAN POTASSIUM 100 MG TABLET PO (08:15)
[2023-02-26 08:39] LABS: Hemoglobin A1C 5.9 % (<5.7)
[2023-02-26] MEDS: polyethylene glycoL 3350 17 GM POWD.PACK PO (09:29)
--- NOTE | 2023-02-26 11:12 | P.PNIM_ITS ---
Progress Note: A&P Assessment and Plan (1) Altered mental status: Code(s): R41.82 - Altered mental status, unspecified Status: Acute Assessment and Plan: Patient presented with altered mental status after ingesting 2 doses of his morning medications including morphine. Patient was very very agitated and by the time he arrived to the ED he received Haldol, Ativan and ketamine due to being combative and aggressive. Patient very lethargic when being evaluated. * Tox screen revealed positive for opiates. denies drug use and alcohol abuse. * Head CT negative for acute intracranial hemorrhage, mass or acute infarct * Brain MRI no acute abnormality seen, old right frontal lobe infarct * CBC within normal limits * Patient was found to be in metabolic acidosis. Will plan for repeat blood gas in the morning. * Checking vitamin levels due to patient's saying that he takes a lot of vitamins in the morning * Ammonia less than 9, LFTs normal * Upon admission creatinine 1.7 but has returned To normal. * Lipase elevated to 1400 on admission but repeat down to 243. * Neurology was consulted but do not believe the patient requires EEG at this time. * Continue to monitor mental status. * PT and OT consulted (2) Accidental overdose: Code(s): T50.901A - Poisoning by unspecified drugs, medicaments and biological substances, accidental (unintentional), initial encounter Status: Acute Assessment and Plan: Patient had taken 120 mg of morphine. * Patient's tox screen positive for opiates. * His gave him Narcan him at home. (3) Pulmonary edema: Code(s): J81.1 - Chronic pulmonary edema Status: Acute Assessment and Plan: 02/25/23 during evaluation of the patient he stated that he was having chest pain and difficulty breathing. * Troponin within normal limits and EKG with no significant changes other than sinus bradycardia. * Chest x-ray showing worsening interstitial pulmonary edema. * IV fluids discontinued. * Start patient on 40 mg IV Lasix b.i.d. (4) Hyperkalemia: Code(s): E87.5 - Hyperkalemia Status: Acute Assessment and Plan: potassium 5.9 on 02/24/2023. Patient likely hyperkalemic due to metabolic acidosis. * patient received IV fluids * Will give 1 time dose of albuterol * 02/25 fluids discontinued resolved (5) Multiple sclerosis: Code(s): G35 - Multiple sclerosis Status: Chronic Assessment and Plan: Continue home medications (6) Hypertension: Code(s): I10 - Essential (primary) hypertension Status: Chronic Assessment and Plan: Hold home medications for now. (7) Hyperlipidemia: Code(s): E78.5 - Hyperlipidemia, unspecified Status: Chronic Assessment and Plan: Hold medication (8) Hypothyroidism: Code(s): E03.9 - Hypothyroidism, unspecified Status: Chronic Assessment and Plan: continue levothyroxine. Subjective Date/time seen: 02/26/23 11:12 Interval history: Patient appears to be doing better today. His shortness of breath and chest pain are improved. He is planning to work with pt and ot today. I would anticipate discharge tomorrow if patient continues to improve. He denies nausea, vomiting, body aches, chills, dizziness, and headache. Review of Systems Review of Systems: All systems reviewed & are unremarkable except as noted in HPI and below
--- NOTE | 2023-02-26 11:12 | PM.IMPN ---
Progress Note: A&P Assessment and Plan (1) Altered mental status: Code(s): R41.82 - Altered mental status, unspecified Status: Acute Assessment and Plan: Patient presented with altered mental status after ingesting 2 doses of his morning medications including morphine. Patient was very very agitated and by the time he arrived to the ED he received Haldol, Ativan and ketamine due to being combative and aggressive. Patient very lethargic when being evaluated. Tox screen revealed positive for opiates. denies drug use and alcohol abuse. Head CT negative for acute intracranial hemorrhage, mass or acute infarct Brain MRI no acute abnormality seen, old right frontal lobe infarct CBC within normal limits Patient was found to be in metabolic acidosis. Will plan for repeat blood gas in the morning. Checking vitamin levels due to patient's saying that he takes a lot of vitamins in the morning Ammonia less than 9, LFTs normal Upon admission creatinine 1.7 but has returned To normal. Lipase elevated to 1400 on admission but repeat down to 243. Neurology was consulted but do not believe the patient requires EEG at this time. Continue to monitor mental status. PT and OT consulted (2) Accidental overdose: Code(s): T50.901A - Poisoning by unspecified drugs, medicaments and biological substances, accidental (unintentional), initial encounter Status: Acute Assessment and Plan: Patient had taken 120 mg of morphine. Patient's tox screen positive for opiates. His gave him Narcan him at home. (3) Pulmonary edema: Code(s): J81.1 - Chronic pulmonary edema Status: Acute Assessment and Plan: 02/25/23 during evaluation of the patient he stated that he was having chest pain and difficulty breathing. Troponin within normal limits and EKG with no significant changes other than sinus bradycardia. Chest x-ray showing worsening interstitial pulmonary edema. IV fluids discontinued. Start patient on 40 mg IV Lasix b.i.d. (4) Hyperkalemia: Code(s): E87.5 - Hyperkalemia Status: Acute Assessment and Plan: potassium 5.9 on 02/24/2023. Patient likely hyperkalemic due to metabolic acidosis. patient received IV fluids Will give 1 time dose of albuterol 02/25 fluids discontinued resolved (5) Multiple sclerosis: Code(s): G35 - Multiple sclerosis Status: Chronic Assessment and Plan: Continue home medications (6) Hypertension: Code(s): I10 - Essential (primary) hypertension Status: Chronic Assessment and Plan: Hold home medications for now. (7) Hyperlipidemia: Code(s): E78.5 - Hyperlipidemia, unspecified Status: Chronic Assessment and Plan: Hold medication (8) Hypothyroidism: Code(s): E03.9 - Hypothyroidism, unspecified Status: Chronic Assessment and Plan: continue levothyroxine. Subjective Date/time seen: 02/26/23 11:12 Interval history: Patient appears to be doing better today. His shortness of breath and chest pain are improved. He is planning to work with pt and ot today. I would anticipate discharge tomorrow if patient continues to improve. He denies nausea, vomiting, body aches, chills, dizziness, and headache. Review of Systems Review of Systems: All systems reviewed & are unremarkable except as noted in HPI and below Exam Narrative: GENERAL: Comfortable, no acute distress, neck HENMT: White thick secretions in patient's mouth EYES: EOM intact b/l NECK: No lymphadenopathy RESPIRATORY: Clear to auscultation CARDIO: RRR GI: Soft, nontender, bowel sounds present SKIN: No rashes EXTREMITIES: No edema, redness or tenderness NEURO: A&O x4 Objective Data Vital Signs Vital Signs: Vital Signs - 24 hr 02/25/23 14:00 02/25/23 16:00 02/25/23 21:38 Temperature 96.2 F L 97 F L Pulse Rate 54 L 54
[2023-02-26 12:26] LABS: Glucose Point of Care 235 mg/dl (65-105)
[2023-02-26 17:31] LABS: Glucose Point of Care 215 mg/dl (65-105)
[2023-02-26 20:49] LABS: Glucose Point of Care 260 mg/dl (65-105)
[2023-02-26] MEDS: NORTRIPTYLINE HCL 25 MG CAPSULE PO (21:41)
[2023-02-27] VITALS: PULSE 92
[2023-02-27 04:00] VITALS: PULSE 79
[2023-02-27 06:00] VITALS: BP 157/66; PULSE 67; RESP 16; TEMP 36.2; O2SAT 95
[2023-02-27] MEDS: LEVOTHYROXINE SODIUM 75 MCG TABLET PO (06:41)
[2023-02-27 06:55] LABS: Basophils Percent Auto 0.3 % (0.2-1.2); Eosinophils Absolute Auto 0.2 K/mm3 (0-0.3); Eosinophils Percent Auto 2.1 % (0-4.4); Hematocrit 33.8 % (42.0-52.0); Hemoglobin 11.5 g/dL (14.0-18.0); Immature Granulocyte Absolute 0.03 K/mm3 (0.00-0.031); Immature Granulocyte Percent A 0.3 % (0-0.5); Lymphocytes Absolute Auto 5.37 K/mm3 (0.9-3.2); Mean Corpuscular Hemoglobin 30.7 pg (26-34); Mean Corpuscular Volume 90.4 fl (80-100); Monocytes Absolute Auto 0.8 K/mm3 (0.1-0.6); Monocytes Percent Auto 7.3 % (2.6-8.5); Neutrophils Absolute Auto 4.7 K/mm3 (1.3-6.7); Nucleated Red Blood Cells Perc 0.2 % (0.0-0.2); Platelet Count Result 148 k/mm3 (150-375); Red Blood Count 3.74 M/mm3 (4.6-6.20); Red Cell Distribution Width 14.2 % (11.5-14.5); White Blood Count 11.2 K/mm3 (4.5-10.0)
[2023-02-27 07:05] LABS: Alanine Aminotransferase 23 U/L (6-50); Albumin Level 3.8 g/dL (3.5-5.1); Alkaline Phosphatase 66 U/L (38-126); Anion Gap 4 mmol/L (8-16); Aspartate Amino Transferase 34 U/L (17-59); Blood Urea Nitrogen 13 mg/dL (9-20); Calcium 7.8 mg/dL (8.4-10.2); Carbon Dioxide 31 mmol/L (22-30); Chloride 101 mmol/L (98-107); Estimated CRCL calculation 91 ml/min; Estimated Glomerular Filt Rate > 60; Glucose 186 mg/dL (65-110); Magnesium 1.5 mg/dL (1.6-2.3); Potassium 3.5 mmol/L (3.4-5.0); Sodium 136 mmol/L (137-145)
[2023-02-27 08:02] VITALS: PULSE 77
[2023-02-27 08:20] LABS: Glucose Point of Care 196 mg/dl (65-105)
[2023-02-27 08:27] LABS: Platelet Estimate Adequate (Adequate); Schistocytes None Seen (NORMAL); Smudge Cells PRESENT
[2023-02-27] MEDS: PANTOPRAZOLE SODIUM IV 40 MG VIAL IV PUSH (09:43)
[2023-02-27] MEDS: MORPHINE SULFATE (*CRX) 30 MG TABCR PO (09:43)
[2023-02-27] MEDS: MAGNESIUM SULFATE 3GM/D5W100ML 3 GM/100 ML BAG IVPB (09:43)
[2023-02-27] MEDS: TERAZOSIN HCL 5 MG CAPSULE PO (09:43)
[2023-02-27] MEDS: LOSARTAN POTASSIUM 100 MG TABLET PO (09:43)
[2023-02-27] MEDS: ASPIRIN 81 MG CHEWABLE TABLET PO (09:43)
[2023-02-27] MEDS: DOCUSATE SODIUM 100 MG CAPSULE PO (09:43)
[2023-02-27] MEDS: ISOSORBIDE MONONITRATE 30 MG TAB.ER.24H PO (09:43)
[2023-02-27] MEDS: FUROSEMIDE INJ 40 MG/4 ML VIAL IV PUSH (09:43)
[2023-02-27 11:56] LABS: Glucose Point of Care 347 mg/dl (65-105)
[2023-02-27 12:00] VITALS: PULSE 81
[2023-02-27 12:09] LABS: Magnesium 2.3 mg/dL (1.6-2.3)
--- NOTE | 2023-02-27 12:16 | P.DS_ITS ---
DS: Admitting Diagnosis Discharge Date 02/27/23 Admitting Diagnosis overdose DS: Discharge Diagnosis Discharge Diagnosis (1) Altered mental status: Code(s): R41.82 - Altered mental status, unspecified Status: Acute Assessment and Plan: Patient presented with altered mental status after ingesting 2 doses of his morning medications including morphine. Patient was very very agitated and by the time he arrived to the ED he received Haldol, Ativan and ketamine due to being combative and aggressive. Patient very lethargic when being evaluated. * Tox screen revealed positive for opiates. denies drug use and alcohol abuse. * Head CT negative for acute intracranial hemorrhage, mass or acute infarct * Brain MRI no acute abnormality seen, old right frontal lobe infarct * CBC within normal limits * Patient was found to be in metabolic acidosis. this was resolved with IV fluids. * Ammonia less than 9, LFTs normal * Upon admission creatinine 1.7 but has returned To normal. * Lipase elevated to 1400 on admission but repeat down to 243. * Neurology was consulted but do not believe the patient requires EEG at this time. * Continue to monitor mental status. * PT and OT consulted (2) Accidental overdose: Code(s): T50.901A - Poisoning by unspecified drugs, medicaments and biological substances, accidental (unintentional), initial encounter Status: Acute Assessment and Plan: Patient had taken 120 mg of morphine. * Patient's tox screen positive for opiates. * His gave him Narcan him at home. (3) Pulmonary edema: Code(s): J81.1 - Chronic pulmonary edema Status: Acute Assessment and Plan: 02/25/23 during evaluation of the patient he stated that he was having chest pain and difficulty breathing. * Troponin within normal limits and EKG with no significant changes other than sinus bradycardia. * Chest x-ray showing worsening interstitial pulmonary edema. * IV fluids discontinued. * Start patient on 40 mg IV Lasix b.i.d. (4) Hyperkalemia: Code(s): E87.5 - Hyperkalemia Status: Acute Assessment and Plan: potassium 5.9 on 02/24/2023. Patient likely hyperkalemic due to metabolic acidosis. * patient received IV fluids * Will give 1 time dose of albuterol * 02/25 fluids discontinued resolved (5) Multiple sclerosis: Code(s): G35 - Multiple sclerosis Status: Chronic Assessment and Plan: Continue home medications (6) Hypertension: Code(s): I10 - Essential (primary) hypertension Status: Chronic Assessment and Plan: Hold home medications for now. (7) Hyperlipidemia: Code(s): E78.5 - Hyperlipidemia, unspecified Status: Chronic Assessment and Plan: Hold medication (8) Hypothyroidism: Code(s): E03.9 - Hypothyroidism, unspecified Status: Chronic Assessment and Plan: continue levothyroxine. DS: Summary Hospital Course Hospital Course: This is a 72-year-old male with a past medical history of multiple sclerosis, hypothyroidism, hypertension, anemia, chronic narcotic use, diabetes, obst ructive sleep apnea and macular degeneration that presented to the ED on 02/23/2023 due to altered mental status. When they woke yesterday morning patient's asked him if he had taken his medication and at that time he could not remember. Patient went ahead and took his morning medications again.? Per patient's he robert
--- NOTE | 2023-02-27 12:16 | PM.DS ---
DS: Admitting Diagnosis Discharge Date 02/27/23 Admitting Diagnosis overdose DS: Discharge Diagnosis Discharge Diagnosis (1) Altered mental status: Code(s): R41.82 - Altered mental status, unspecified Status: Acute Assessment and Plan: Patient presented with altered mental status after ingesting 2 doses of his morning medications including morphine. Patient was very very agitated and by the time he arrived to the ED he received Haldol, Ativan and ketamine due to being combative and aggressive. Patient very lethargic when being evaluated. Tox screen revealed positive for opiates. denies drug use and alcohol abuse. Head CT negative for acute intracranial hemorrhage, mass or acute infarct Brain MRI no acute abnormality seen, old right frontal lobe infarct CBC within normal limits Patient was found to be in metabolic acidosis. this was resolved with IV fluids. Ammonia less than 9, LFTs normal Upon admission creatinine 1.7 but has returned To normal. Lipase elevated to 1400 on admission but repeat down to 243. Neurology was consulted but do not believe the patient requires EEG at this time. Continue to monitor mental status. PT and OT consulted (2) Accidental overdose: Code(s): T50.901A - Poisoning by unspecified drugs, medicaments and biological substances, accidental (unintentional), initial encounter Status: Acute Assessment and Plan: Patient had taken 120 mg of morphine. Patient's tox screen positive for opiates. His gave him Narcan him at home. (3) Pulmonary edema: Code(s): J81.1 - Chronic pulmonary edema Status: Acute Assessment and Plan: 02/25/23 during evaluation of the patient he stated that he was having chest pain and difficulty breathing. Troponin within normal limits and EKG with no significant changes other than sinus bradycardia. Chest x-ray showing worsening interstitial pulmonary edema. IV fluids discontinued. Start patient on 40 mg IV Lasix b.i.d. (4) Hyperkalemia: Code(s): E87.5 - Hyperkalemia Status: Acute Assessment and Plan: potassium 5.9 on 02/24/2023. Patient likely hyperkalemic due to metabolic acidosis. patient received IV fluids Will give 1 time dose of albuterol 02/25 fluids discontinued resolved (5) Multiple sclerosis: Code(s): G35 - Multiple sclerosis Status: Chronic Assessment and Plan: Continue home medications (6) Hypertension: Code(s): I10 - Essential (primary) hypertension Status: Chronic Assessment and Plan: Hold home medications for now. (7) Hyperlipidemia: Code(s): E78.5 - Hyperlipidemia, unspecified Status: Chronic Assessment and Plan: Hold medication (8) Hypothyroidism: Code(s): E03.9 - Hypothyroidism, unspecified Status: Chronic Assessment and Plan: continue levothyroxine. DS: Summary Hospital Course Hospital Course: This is a 72-year-old male with a past medical history of multiple sclerosis, hypothyroidism, hypertension, anemia, chronic narcotic use, diabetes, obstructive sleep apnea and macular degeneration that presented to the ED on 02/23/2023 due to altered mental status. When they woke yesterday morning patient's asked him if he had taken his medication and at that time he could not remember. Patient went ahead and took his morning medications again.? Per patient's he had 2 doses of all of his morning meds within approximately 2-3 hours of each other.? She understands that she will need to take over his medications. About 30 minutes after he had taken his 2nd round of medications he became very loud, aggressive, and restless. ? Patient's then decided to Narcan him at this time. Patient made statements? such as he was going to and that he needed immediate medical attention.? Patient's then called EMS.? Patient did have an incre
[2023-02-27 13:39] VITALS: BP 128/56; PULSE 84; RESP 18; TEMP 36.2; O2SAT 96
--- NOTE | 2023-03-02 07:27 | PC.NURSE ---
Received call from Arpita from lab regarding blood cx growing gram positive bacilli in aerobic bottle. Message sent to LOLA Ventura
--- NOTE | 2023-03-02 07:51 | PC.NURSE ---
Spoke to LOLA Ventura regarding findings. She feels may be a contaminate. Will wait to see final outcome with growth.
[2023-03-02 18:41] LABS: Vitamin K1 182 pg/mL (130-1500)
[2023-03-02 20:46] LABS: Alpha-Tocopherol 20.8 mg/L (5.7-19.9); Beta-Gamma Tocopherol <1.0 mg/L (<=4.3); Vitamin A 55 mcg/dL (38-98)
== END 2023-02-27 15:20 | disposition home or self-care (01) | DRG 918 ==
LOC: ANHED 02-24 04:58 → ANH3MEDSUR 02-24 05:47
PROVIDERS: Admitting Provider Internal Medicine; Emergency Provider Emergency Medicine; Visit Provider Internal Medicine Critical Care Medicine
DX: T40.2X1A Poisoning by other opioids, accidental (unintentional), initial encounter (principal); E87.21 Acute metabolic acidosis; J81.1 Chronic pulmonary edema; E87.5 Hyperkalemia; G35 Multiple sclerosis; I10 Essential (primary) hypertension; Z20.822 Contact with and (suspected) exposure to COVID-19; E11.9 Type 2 diabetes mellitus without complications; E78.5 Hyperlipidemia, unspecified; E03.9 Hypothyroidism, unspecified; D64.9 Anemia, unspecified; G47.33 Obstructive sleep apnea (adult) (pediatric); H35.30 Unspecified macular degeneration; Z87.891 Personal history of nicotine dependence; Z95.5 Presence of coronary angioplasty implant and graft; Z90.49 Acquired absence of other specified parts of digestive tract
CPT/HCPCS: 36415; 36600; 70450; 70553; 71045; 80048; 80053; 80307; 81001; 82140; 82306; 82550; 82607; 82805; 82948; 83036; 83605; 83690; 83735; 83880; 84443; 84446; 84484; 84590; 84597; 85025; 85055; 85610; 85730; 87040; 87076; 87637; 93005; 96361; 96372; 96374; 96375; 97161; 97165; 99285; A9270; A9577; C9113; J1630; J1940; J2060; J3475; J7030; J7120